=== PATIENT | male | born 1950 | race Caucasian/White ===

== ENCOUNTER → 2022-08-22 10:46 | Outpatient (CLI) | payer MEDICARE, OTHER, SELFPAY ==
--- NOTE | 2022-08-22 11:17 | DI.RAD.S_ITS ---
PROCEDURE: XR BONE LENGTH SCANOGRAM INDICATIONS: LEG LENGH DISCREPENCY TECHNIQUE: A single frontal standing view of both lower extremities acquired, with measuring ruler situated between the legs. COMPARISON: None. FINDINGS: Right: Total leg length is 95.5 cm. Left: Total leg length is 92 cm. IMPRESSION: Leg-length discrepancy of 3.5 cm. Dictated by: Clary Fermin M.D. on 08/22/2022 at 19:17 Approved by: Clary Fermin M.D. on 08/22/2022 at 19:18
--- NOTE | 2022-08-22 11:17 | DI.RAD.S_ITS ---
PROCEDURE: XR BONE LENGTH SCANOGRAM INDICATIONS: LEG LENGH DISCREPENCY TECHNIQUE: A single frontal standing view of both lower extremities acquired, with measuring ruler situated between the legs. COMPARISON: None. FINDINGS: Right: Total leg length is 95.5 cm. Left: Total leg length is 92 cm. IMPRESSION: Leg length discrepancy of 3.5 cm. Dictated by: Clary Fermin M.D. on 08/22/2022 at 19:14 Approved by: Clary Fermin M.D. on 08/22/2022 at 19:17
== END ==
PROVIDERS: PCP Internal Medicine; Referring Provider Podiatrist; Visit Provider Podiatrist
DX: M21.70 Unequal limb length (acquired), unspecified site (principal)
CPT/HCPCS: 77073

== ENCOUNTER → 2022-11-20 | Outpatient (CLI) | payer MEDICARE, OTHER, SELFPAY ==
--- NOTE | 2022-11-20 | DI.MRI.S_ITS ---
PROCEDURE: MR LUMBAR SPINE WO CON INDICATIONS: STRAIN OF LUMBAR REGION TECHNIQUE: Noncontrast sagittal T1 spin echo and T2 fast echo, sagittal STIR, and T2 fast spin echo through the lumbar spine. In cases with scoliosis, additional coronal T2 fast spin echo may be performed. COMPARISON: None. FINDINGS: Image quality: Excellent. Alignment and Curvature: Levocurvature of the lumbar spine. No spondylolisthesis. Bone Marrow: Marrow is of normal overall signal. No acute vertebral body compression fractures. Spinal Cord: Conus medullaris terminates at the L1 level. Visualized cord demonstrates normal signal and size. Paraspinous Soft Tissues: No paravertebral masses. Left renal simple appearing cyst. T12-L1: No central canal or neural foraminal stenosis. L1-L2: Disc desiccation and minimal disc bulge. No central canal or neural foraminal stenosis. L2-L3: Disc desiccation and mild posterior disc bulge. Facet arthropathy. No central canal or neural foraminal stenosis. L3-L4: Facet arthropathy and thickening of the ligamentum flavum. No central canal or neural foraminal stenosis. L4-L5: Disc desiccation and mild posterior disc bulge. Facet arthropathy and thickened ligamentum flavum. Mild narrowing of the lateral recesses. Mild bilateral neural foraminal stenosis. L5-S1: Facet arthropathy. No central canal stenosis. Moderate left neural foraminal and mild right neural foraminal stenosis. IMPRESSION: 1. 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 2. No significant central canal stenosis. 3. Moderate left neural foraminal stenosis at L5-S1. Additional levels of mild neural foraminal stenosis as described above. Dictated by: Ry Delgado M.D. on 11/20/2022 at 14:17 Approved by: Ry Delgado M.D. on 11/20/2022 at 14:21
== END ==
LOC: MRI 11:41
PROVIDERS: PCP Internal Medicine; Referring Provider Physical Medicine & Rehabilitation Pain Medicine; Visit Provider Physical Medicine & Rehabilitation Pain Medicine
DX: S39.012D Strain of muscle, fascia and tendon of lower back, subsequent encounter (principal); M47.816 Spondylosis without myelopathy or radiculopathy, lumbar region; M47.817 Spondylosis without myelopathy or radiculopathy, lumbosacral region; M48.07 Spinal stenosis, lumbosacral region; M48.061 Spinal stenosis, lumbar region without neurogenic claudication
CPT/HCPCS: 72148